=== PATIENT | male | born 1945 | race Caucasian/White ===

== ENCOUNTER 2016-05-18 08:17 | Outpatient (CLI) | payer MEDICARE | END 2016-05-18 08:18 | disposition home or self-care (01) | DX: I10 Essential (primary) hypertension (principal); E78.5 Hyperlipidemia, unspecified; E11.9 Type 2 diabetes mellitus without complications ==

== ENCOUNTER 2016-08-18 09:31 | Outpatient (CLI) | payer MEDICARE ==
[2016-08-18 20:00] LABS: HEMOGLOBIN A1C 0.68 g/dL
== END 2016-08-18 09:32 | disposition home or self-care (01) ==
LOC: LAB.F 09:31
PROVIDERS: ATTEND Family Medicine
DX: E11.9 Type 2 diabetes mellitus without complications (principal); I10 Essential (primary) hypertension
CPT/HCPCS: 36415; 83036

== ENCOUNTER 2016-08-24 10:29 | Outpatient (CLI) | payer MEDICARE ==
--- NOTE | 2016-08-25 07:19 | XRAY Report ---
LUMBAR SPINE, THREE VIEWS : 08/24/2016 CLINICAL HISTORY: Patient has chronic low back pain. FINDINGS: Mild vascular calcification is noted in the abdominal aorta. Five non-rib bearing lumbar-type vertebrae are seen. Anterior spurring is noted in the lumbar spine of moderate degree at L1-2. Mild anterior spurring is noted at L3 and L4. Mild reverse spondylolisthesis is noted of L2 in relationship to L3. Mild spon dylolisthesis is noted of L4 in relationship to L5. There is 4 mm of spondylolisthesis of L4 in rela tionship to L5. Moderate degree of disk space narrowing is noted at L5-S1. Significant narrowing of the facet joints is noted bilaterally at L4-5 and L5-S1. Moderate degree of spurring is noted at T10, T11, and T12 with bridging osteophytes at these levels. IMPRESSION: 1. OSTEOARTHRITIS AND DEGENERATIVE DISK DISEASE IS NOTED IN THE LUMBAR SPINE DISCUSSED ABOVE. 2. SEVERE OSTEOARTHRITIS OF THE FACET JOINTS IS NOTED AT L4-5 AND L5-S1. 3. SIGNIFICANT OSTEOARTHRITIS IS SEEN IN THE LOWER THORACIC SPINE. 4. 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 20:9:22 JOB #: [id number] EXT JOB #:[id number]
== END 2016-08-24 10:30 | disposition home or self-care (01) ==
LOC: DI.S 10:29
PROVIDERS: ATTEND Family Medicine
DX: M47.896 Other spondylosis, lumbar region (principal); M51.36 Other intervertebral disc degeneration, lumbar region; M47.894 Other spondylosis, thoracic region; M43.16 Spondylolisthesis, lumbar region
CPT/HCPCS: 72100

== ENCOUNTER 2016-11-29 08:31 | Outpatient (CLI) | payer MEDICARE ==
[2016-11-29 12:07] LABS: HEMOGLOBIN A1C 0.7 g/dL
[2016-11-29 12:38] LABS: ALBUMIN/GLOBULIN RATIO 1.6 (1.0-2.2); BILIRUBIN,TOTAL 0.8 mg/dL (0.2-1.0); BUN - BLOOD UREA NITROGEN 24 mg/dL (6-20); CALCIUM 9.4 mg/dL (8.5-10.3); CARBON DIOXIDE - CO2 25 mmol/L (21-32); CHLORIDE 101 mmol/L (101-111); CHOL/HDL RATIO 3.7 (<5.0); CHOLESTEROL 167 mg/dL; CREATININE 0.9 mg/dL (0.6-1.2); GFR - MDRD 83 (>89); GLUCOSE 119 mg/dL (70-100); HDL CHOLESTEROL 45 mg/dL; LDL/HDL RATIO 2.4 (<3.6); POTASSIUM 3.6 mmol/L (3.5-5.0); SODIUM 136 mmol/L (135-145); TOTAL PROTEIN 6.6 g/dL (6.7-8.2); TRIGLYCERIDES 66 mg/dL; VLDL CHOLESTEROL 13 mg/dL
== END 2016-11-29 08:32 | disposition home or self-care (01) ==
LOC: LAB.F 08:31
PROVIDERS: ATTEND Family Medicine
DX: M54.5 Low back pain (principal); E11.9 Type 2 diabetes mellitus without complications; I10 Essential (primary) hypertension
CPT/HCPCS: 36415; 80053; 80061; 82043; 83036

== ENCOUNTER 2017-03-02 09:09 | Outpatient (CLI) | payer MEDICARE ==
[2017-03-02 18:42] LABS: CREATININE 0.9 mg/dL (0.6-1.2); POTASSIUM 3.7 mmol/L (3.5-5.0)
[2017-03-02 19:28] LABS: HEMOGLOBIN A1C 0.73 g/dL
== END 2017-03-02 09:10 | disposition home or self-care (01) ==
LOC: LAB.F 09:09
PROVIDERS: ATTEND Family Medicine
DX: E11.9 Type 2 diabetes mellitus without complications (principal); I10 Essential (primary) hypertension; Z12.5 Encounter for screening for malignant neoplasm of prostate
CPT/HCPCS: 36415; 80048; 83036; G0103; 84153

== ENCOUNTER 2017-03-08 10:49 | Outpatient (CLI) | payer MEDICARE ==
[2017-03-08 18:04] LABS: ALBUMIN/GLOBULIN RATIO 1.6 (1.0-2.2); BILIRUBIN,TOTAL 0.8 mg/dL (0.2-1.0); BUN - BLOOD UREA NITROGEN 21 mg/dL (6-20); CALCIUM 9.5 mg/dL (8.5-10.3); CARBON DIOXIDE - CO2 25 mmol/L (21-32); CHLORIDE 103 mmol/L (101-111); CHOLESTEROL 144 mg/dL; CREATININE 0.9 mg/dL (0.6-1.2); GFR - MDRD 83 (>89); GLUCOSE 141 mg/dL (70-100); HDL CHOLESTEROL 36 mg/dL; LDL/HDL RATIO 2.1 (<3.6); POTASSIUM 3.8 mmol/L (3.5-5.0); SODIUM 136 mmol/L (135-145); TOTAL PROTEIN 6.6 g/dL (6.7-8.2); TRIGLYCERIDES 172 mg/dL; VLDL CHOLESTEROL 34 mg/dL
[2017-03-08 18:06] LABS: HEMOGLOBIN A1C 0.69 g/dL
== END 2017-03-08 10:50 | disposition home or self-care (01) ==
LOC: LAB.F 10:49
PROVIDERS: ATTEND Family Medicine
DX: E11.9 Type 2 diabetes mellitus without complications (principal); I10 Essential (primary) hypertension; E78.5 Hyperlipidemia, unspecified; Z12.5 Encounter for screening for malignant neoplasm of prostate
CPT/HCPCS: 36415; 80053; 80061; 82043; 83036; G0103; 84153

== ENCOUNTER 2017-04-27 09:05 | Outpatient (CLI) | payer MEDICARE ==
--- NOTE | 2017-04-27 13:15 | XRAY Report ---
DATE OF SERVICE: 04/27/2017 TWO VIEW BILATERAL KNEES: 04/27/2017 CLINICAL INDICATION: Osteoarthritis. FINDINGS: Frontal and lateral views of the bilateral knees demonstrate moderate bilateral osteoarthritis. There is no evidence of acute fracture or dislocation. No effusion is present on either side. IMPRESSION: MODERATE BILATERAL OSTEOARTHRITIS. TD: 04/27/2017 14:13
== END 2017-04-27 09:06 | disposition home or self-care (01) ==
LOC: DI.S 09:05
PROVIDERS: ATTEND Family Medicine
DX: M17.0 Bilateral primary osteoarthritis of knee (principal)
CPT/HCPCS: 73565

== ENCOUNTER 2017-05-30 09:19 | Outpatient (CLI) | payer MEDICARE ==
[2017-05-30 18:08] LABS: HB2 TOTAL 15.1 g/dL; HEMOGLOBIN A1C 0.77 g/dL; HEMOGLOBIN A1C % 6.8 % (4.6-6.2)
[2017-05-30 18:15] LABS: PSA FREE 0.81 ng/mL (0.16-2.81)
[2017-05-30 18:16] LABS: PSA TOTAL 3.76 ng/mL (0.000-2.000)
[2017-05-30 18:22] LABS: ALBUMIN 4.4 g/dL (3.2-5.5); ALBUMIN/GLOBULIN RATIO 1.6 (1.0-2.2); ALKALINE PHOSPHATASE 46 IU/L (42-121); ALT ALANINE AMINOTRANSFERASE 23 IU/L (10-60); AST ASPARTATE AMINOTRANSFERASE 30 IU/L (10-42); BILIRUBIN,TOTAL 0.8 mg/dL (0.2-1.0); BUN - BLOOD UREA NITROGEN 18 mg/dL (6-20); CALCIUM 9.5 mg/dL (8.5-10.3); CARBON DIOXIDE - CO2 27 mmol/L (21-32); CHLORIDE 101 mmol/L (101-111); CHOL/HDL RATIO 4.7 (<5.0); CHOLESTEROL 159 mg/dL; GFR - MDRD 74 (>89); GLUCOSE 100 mg/dL (70-100); HDL CHOLESTEROL 34 mg/dL; LDL CHOLESTEROL,CALCULATED 97 mg/dL; LDL/HDL RATIO 2.9 (<3.6); SODIUM 136 mmol/L (135-145); TOTAL PROTEIN 7.2 g/dL (6.7-8.2); VLDL CHOLESTEROL 28 mg/dL
== END 2017-05-30 09:20 | disposition home or self-care (01) ==
LOC: LAB.F 09:19
PROVIDERS: ATTEND Family Medicine
DX: E11.9 Type 2 diabetes mellitus without complications (principal); I10 Essential (primary) hypertension; E78.5 Hyperlipidemia, unspecified; R97.20 Elevated prostate specific antigen [PSA]
CPT/HCPCS: 36415; 80053; 80061; 83036; 83721; 84154

== ENCOUNTER 2017-09-12 08:42 | Outpatient (CLI) | payer MEDICARE ==
[2017-09-12 11:40] LABS: CALCIUM 9.3 mg/dL (8.5-10.3); CREATININE 0.9 mg/dL (0.6-1.2)
[2017-09-12 12:08] LABS: HB2 TOTAL 15.1 g/dL; HEMOGLOBIN A1C 0.7 g/dL; HEMOGLOBIN A1C % 6.4 % (4.6-6.2)
== END 2017-09-12 08:43 | disposition home or self-care (01) ==
LOC: LAB.F 08:42
PROVIDERS: ATTEND Family Medicine
DX: E11.9 Type 2 diabetes mellitus without complications (principal); I10 Essential (primary) hypertension
CPT/HCPCS: 36415; 80048; 83036

== ENCOUNTER 2019-06-13 09:58 | Outpatient (CLI) | payer MEDICARE ==
[2019-06-13 17:33] LABS: HB2 TOTAL 13.5 g/dL; HEMOGLOBIN A1C 0.54 g/dL; HEMOGLOBIN A1C % 5.8 % (4.6-6.2)
[2019-06-13 17:37] LABS: ALBUMIN 4.3 g/dL (3.2-5.5); ALBUMIN/GLOBULIN RATIO 1.5 (1.0-2.2); ALKALINE PHOSPHATASE 42 IU/L (42-121); ALT ALANINE AMINOTRANSFERASE 30 IU/L (10-60); AST ASPARTATE AMINOTRANSFERASE 30 IU/L (10-42); BILIRUBIN,TOTAL 0.6 mg/dL (0.2-1.0); BUN - BLOOD UREA NITROGEN 23 mg/dL (6-20); CARBON DIOXIDE - CO2 27 mmol/L (21-32); CHLORIDE 98 mmol/L (101-111); CHOL/HDL RATIO 3.3 (<5.0); CHOLESTEROL 150 mg/dL; CREATININE 0.8 mg/dL (0.6-1.2); GFR - MDRD 95 (>89); GLUCOSE 98 mg/dL (70-100); HDL CHOLESTEROL 46 mg/dL; SODIUM 132 mmol/L (135-145); TOTAL PROTEIN 7.2 g/dL (6.7-8.2)
[2019-06-13 17:38] LABS: PSA TOTAL 4.75 ng/mL (0.000-2.000)
[2019-06-13 18:05] LABS: PSA FREE 0.88 ng/mL (0.16-2.81)
[2019-06-13 18:42] LABS: CREATININE,URINE 25.4 mg/dL
[2019-06-13 19:02] LABS: MICROALBUMIN,URINE < 0.2 mg/dL (0-300.0)
== END 2019-06-13 09:59 | disposition home or self-care (01) ==
LOC: LAB.S 09:58
PROVIDERS: ATTEND Family Medicine
DX: R97.20 Elevated prostate specific antigen [PSA] (principal); E78.5 Hyperlipidemia, unspecified; E11.9 Type 2 diabetes mellitus without complications; I10 Essential (primary) hypertension
CPT/HCPCS: 36415; 80053; 80061; 82043; 82570; 83036; 83721; 84153; 84154

== ENCOUNTER 2020-08-02 08:00 | Outpatient (CLI) | payer MEDICARE ==
--- NOTE | 2020-08-02 17:17 | XRAY Report ---
PROCEDURE: Knee 4 View BILAT INDICATIONS: BILATERAL PRIMARY OSTEOARTHRITIS OF KNEE TECHNIQUE: 3 views of the right and left knee(s) were acquired. COMPARISON: None. FINDINGS: Bones: No fractures or dislocations. No suspicious bony lesions. Moderate bilateral medial and tan llofemoral compartment osteoarthritis. Mild bilateral lateral compartment osteoarthritis. Small bilat eral suprapatellar joint effusions. Soft tissues: No joint effusion. No suspicious soft tissue calcifications. IMPRESSION: 1. Bilateral knee osteoarthritis as described above. 2. Small bilateral knee joint effusions. Reviewed by: Patito Naranjo MD, PhD on 08/02/2020 5:16 PM PDT Approved by: Patito Naranjo MD, PhD on 08/02/2020 5:16 PM PDT Station ID: [id number]
== END 2020-08-02 23:59 | disposition home or self-care (01) ==
LOC: DI.N 08:00
PROVIDERS: ATTEND Physician Assistant
DX: M17.0 Bilateral primary osteoarthritis of knee (principal); M25.462 Effusion, left knee; M25.461 Effusion, right knee

== ENCOUNTER 2021-03-04 14:27 | Outpatient (CLI) | payer MEDICARE ==
--- NOTE | 2021-03-04 17:28 | Ultrasound Report ---
PROCEDURE: Pelvic Limited or F/U INDICATIONS: MASS OF LLQ TECHNIQUE: Real-time transabdominal scanning was performed of the left inguinal region, with image documentation . COMPARISON: None. FINDINGS: No inguinal hernia is seen in the area of interest at the left groin, even with Valsalva maneuver. IMPRESSION: No left inguinal hernia. Reviewed by: James Mclean MD on 03/04/2021 5:26 PM PST Approved by: James Mclean MD on 03/04/2021 5:26 PM PST Station ID: [id number]
== END 2021-03-04 14:28 | disposition home or self-care (01) ==
LOC: DI 14:27
PROVIDERS: ATTEND Physician Assistant
DX: R19.04 Left lower quadrant abdominal swelling, mass and lump (principal)